=== PATIENT | female | born 1960 | race Two or more races ===

== ENCOUNTER 2024-02-20 05:55 | Day surgery (SDC) | payer OTHER ==
[2024-02-20] MEDS ORDERED: CEFAZOLIN SODIUM 1,000 MG VIAL ONE (11:34)
[2024-02-20] MEDS ORDERED: CHLORHEXIDINE GLUCONATE 120 ML BOTTLE TOP ONE (13:29)
== END 2024-02-20 17:35 | disposition home or self-care (01) ==
LOC: CIR.AMB 05:55
PROVIDERS: ATTEND Surgery
DX: D05.12 Intraductal carcinoma in situ of left breast (principal); N60.82 Other benign mammary dysplasias of left breast; F41.9 Anxiety disorder, unspecified; M81.0 Age-related osteoporosis without current pathological fracture; J32.9 Chronic sinusitis, unspecified
CPT/HCPCS: 19301; 38525; A9541